=== PATIENT | female | born 1975 | race Caucasian/White ===

== ENCOUNTER 2022-03-19 16:27 | Emergency (ER) | payer OTHER, SELFPAY ==
[2022-03-19 16:39] VITALS: BP 145/113; PULSE 87; RESP 16; TEMP 36.5; O2SAT 99
--- NOTE | 2022-03-19 16:59 | ED.DENTAL ---
HPI - Dental/Oral General Chief complaint: Dental/Oral Stated complaint: swollen left side of face Time Seen by Provider: 03/19/22 16:59 Source: patient Mode of arrival: ambulatory History of Present Illness HPI Narrative: 47 y/o female presented for c/o left face swelling under eye and above left front tooth for 2 days. Endorses filling to that tooth broke 1 month ago. Today she has used ice and benadryl, tylenol and motrin. Reports swelling and pain is improving. Denies tongue or throat swelling difficulty breathing or difficulty breathing. MD Complaint: tooth pain Related Data Allergies Allergy/AdvReac Type Severity Reaction Status Date / Time tramadol AdvReac Headache Verified 03/19/22 16:52 Review of Systems Review of Systems: CONSTITUTIONAL: Denies body aches, fever, chills ENT: Denies rhinorrhea, congestion, sore throat, or otalgia. Reports dental pain CARDIOVASCULAR: Denies chest pain, palpitations RESPIRATORY: Denies cough or dyspnea. SKIN: reports facial swelling MUSCULOSKELETAL: Denies myalgia. NEUROLOGIC: Denies headache, numbness, tingling, or weakness. PMFSH Comments At time of signature, I have reviewed and agree with nursing past medical, surgical, social and family history unless otherwise noted. Please see nursing chart for further information. There is no relevant family history pertinent to the presenting complaint Exam Narrative: GENERAL: Appears in pain HEAD: Normocephalic EYES: EOMI. No redness or drainage. Conjunctivae normal. ENT: Dental pain location #9, broken tooth, tender red gum surrounding the tooth; Mucous membranes pink and moist. TMs normal bilaterally. Throat normal. Uvula midline. NECK: Normal AROM. No lymphadenopathy. CHEST: No respiratory distress. Clear to auscultation. HEART: Regular rate and rhythm. No murmur appreciated. SKIN: Warm, dry, Left mild facial swelling and mild redness under the eye and left nasolabial fold NEURO: Alert and oriented x3. Course Course Emergency Course: Patient is aware of diagnosis, understands and agrees to treatment plan. Anticipatory guidance given. Patient agrees to follow-up as directed and is aware of reasons to seek care at the emergency department. Portions of this record may have been created with voice recognition software Level of Care: Express Care Visit Vital Signs Vital signs: Vital Signs Temperature 97.7 F 03/19/22 16:39 Pulse Rate 87 03/19/22 16:39 Respiratory Rate 16 03/19/22 16:39 Blood Pressure 145/113 H 03/19/22 16:39 Pulse Oximetry 99 03/19/22 16:39 Oxygen Delivery Room Air 03/19/22 16:39 Temperature 97.7 F 03/19/22 16:39 Pulse Rate 87 03/19/22 16:39 Respiratory Rate 16 03/19/22 16:39 Blood Pressure 145/113 H 03/19/22 16:39 Pulse Oximetry 99 03/19/22 16:39 Oxygen Delivery Room Air 03/19/22 16:39 MDM - Dental/Oral MDM Narrative Medical decision making narrative: No significant lip/tongue swelling. The erythema and swelling is mild under the left eye. Tenderness to left anterior upper gum line with broken tooth noted. Treat for cellulitis and dental abscess. There are no focal signs of space occupying lesions that are compromising to the airway; No uvular deviation or soft palate edema. Patient is non-toxic appearing. no induration below mandible, no neck pain. Patient is without trismus or drooling and able to swallow secretions. Aware of s/s to go to the ER including but not limited to increased swelling, facial pain, sob, lip/tongue/throat swelling, fever. Patient is appropriate for discharge home with dental follow up. Differential Diagnosis Differential diagnosis: Likely gingival abscess, dental caries, toothache, dental abscess, fracture of tooth and aphthous ulcer Discharge Plan Discharge Clinical Impression: Abscess, dental, Left facial swelling Patient Disposition: Home, Self-Care Condition: Stable Instructions: Dental Abscess (ED), Celluliti
== END 2022-03-19 17:15 | disposition home or self-care (01) ==
PROVIDERS: Emergency Provider Nurse Practitioner Family
DX: K04.7 Periapical abscess without sinus (principal)
CPT/HCPCS: 99203; G0463